=== PATIENT | female | born 1935 | race Caucasian/White ===

== ENCOUNTER → 2016-07-24 | Outpatient (CLI) | payer MEDICARE ==
[~2016-07-24] MED LIST: ALBU2.5V7 AEROSOL; BENA5TAB3 PO; BETA1TAB20 PO; CEFP200T14 PO; CETI-269 PO; CHOL200014 PO; FLUT9.9S EA NOSTRIL; KETO75CA PO; POLY17PO18 PO; SERT100T PO
--- NOTE | 2016-07-24 09:21 | DI ---
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 No intravenous or oral contrast is used. Reformatted sagittal and coronal images are provided. Findings: Heart size is within normal limits. Lungs showed no acute abnormality. 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 Liver, biliary tree, pancreas and spleen are unremarkable. The previous examination had demonstrated a right-sided renal mass which is no longer identified with no obstructive changes appreciated. Left kidney remains stable. Retroperitoneum showed no acute findings. Patient shows artifact with previous spine surgery and stabilization hardware in place from L3 through L5. There still a grade 2 spondylolisthesis of L4 on L5. Visualized bowel shows no acute inflammatory changes or obstruction. No free air or free fluid is noted. No pathologic adenopathy identified in the pelvis. Bladder is poorly distended. Impression: 1. No acute findings noted in the upper abdomen. 2. Moderate gas and stool in the bowel without marked distention or focal point of obstruction. 3. Postoperative changes involving the right kidney with the mass described on the previous study no longer clearly seen. 4. Postop changes in the lumbar spine. .
== END ==
LOC: IMA 08:19
PROVIDERS: ATTEND Surgery
DX: D30.01 Benign neoplasm of right kidney (principal); Z98.890 Other specified postprocedural states; M43.16 Spondylolisthesis, lumbar region